=== PATIENT | female | born 1975 ===

== ENCOUNTER 2018-03-06 12:45 | Emergency (ER) | payer OTHER ==
[~2018-03-06] VITALS: Ht 154.9 cm; Wt 99.8 kg
[~2018-03-06 12:45] MED LIST: ENBREL50 MG/M1; METROTEXATE
[2018-03-06] MEDS ORDERED: CYMBALTA30 MG (13:01)
[2018-03-06] MEDS ORDERED: HUMIRA10 MG/0.2 (13:01)
[2018-03-06] MEDS ORDERED: BACTRIM DS TAB1 EACH PO (16:07)
== END 2018-03-06 16:18 | disposition home or self-care (01) ==
LOC: ER 12:45
DX: N61.0 Mastitis without abscess (principal)